=== PATIENT | male | born 1950 | race Caucasian/White ===

== ENCOUNTER 2019-12-11 18:41 | Emergency (ER) | payer MEDICARE ==
[~2019-12-11] VITALS: Ht 188 cm; Wt 104.5 kg
[2019-12-11 19:33] LABS: BASOPHILS # (AUTO) 0.1 X10'3 (0-0.2); EOSINOPHILS # (AUTO) 0.1 X10'3 (0-0.9); LYMPHOCYTES # (AUTO) 2.6 X10'3 (1.1-4.8); MONOCYTES # (AUTO) 0.8 X10'3 (0-0.9)
[2019-12-11] MEDS ORDERED: VENL150C58 PO (19:37)
[2019-12-11] MEDS ORDERED: OMEG-133 PO (19:37)
[2019-12-11] MEDS ORDERED: ASCO-139 PO (19:37)
[2019-12-11] MEDS ORDERED: MULT-955 PO (19:37)
[2019-12-11] MEDS ORDERED: ATOR20TA66 PO (19:37)
[2019-12-11] MEDS ORDERED: OMEP40CA13 PO (19:37)
[2019-12-11] MEDS ORDERED: VITA-268 PO (19:37)
[2019-12-11 19:40] LABS: ALANINE AMINOTRANSFERASE 80 U/L (12-78); ALBUMIN 4.2 G/DL (3.4-5.0); ALBUMIN/GLOBULIN RATIO 0.9 (1.1-1.5); ALKALINE PHOSPHATASE 91 IU/L (46-116); ANION GAP 14 (8-16); ASPARTATE AMINO TRANSFERASE 40 U/L (10-37); BILIRUBIN,TOTAL 0.6 MG/DL (0.1-1.0); BLOOD UREA NITROGEN 34 MG/DL (7-18); BUN/CREATININE RATIO 19.4 (5.4-32.0); CALCIUM 9.1 MG/DL (8.5-10.1); CHLORIDE 100 MMOL/L (99-107); CREATININE 1.75 MG/DL (0.60-1.10); GLUCOSE 169 MG/DL (70-104); LIPASE 94 U/L (73-393); POTASSIUM 3.5 MMOL/L (3.5-5.1); SODIUM 132 MMOL/L (135-145); TOTAL CARBON DIOXIDE 18.4 MMOL/L (24-32); TOTAL PROTEIN 8.9 G/DL (6.4-8.2); eGFR 39 ML/MIN
[2019-12-11 19:42] LABS: BASOPHILS % (AUTO) 0.4 % (0-1); EOSINOPHILS % (AUTO) 0.6 % (0-6); HEMATOCRIT 54.6 % (42.0-52.0); LYMPHOCYTES % (AUTO) 16.9 % (21-51); MEAN CORPUSCULAR HEMOGLOBIN 32.1 PG (27.0-31.0); MEAN CORPUSCULAR HGB CONC 34.7 g/dL (33.0-36.5); MEAN CORPUSCULAR VOLUME 92.4 FL (78-98); MEAN PLATELET VOLUME 7.9 FL (7.4-10.4); MONOCYTES % (AUTO) 5.3 % (2-12); NEUTROPHILS # (AUTO) 12.1 X10'3 (1.8-7.7); NEUTROPHILS % (AUTO) 76.8 % (42-75); PLATELET COUNT 272 X10'3 (140-440); RED BLOOD COUNT 5.91 X10'6 (4.70-6.10); RED CELL DISTRIBUTION WIDTH 12.9 % (11.5-14.5); WHITE BLOOD COUNT 15.7 X10'3 (4.5-11.0)
[2019-12-11 19:58] LABS: CLARITY,URINE SLIGHTLY CLOUDY (Clear); COLOR,URINE YELLOW (Yellow); GLUCOSE, URINE NEGATIVE (Neg); KETONES,URINE NEGATIVE (Neg); LEUKOCYTE ESTERASE ,URINE NEGATIVE (Neg); NITRITES, URINE NEGATIVE (Neg); OCCULT BLOOD,URINE NEGATIVE (Neg); PROTEIN,URINE 30 mg/dl (Neg); UROBILINOGEN,URINE 0.2 E.U/dL (0.2-1.0)
[2019-12-11 20:09] LABS: UA COLLECTION TYPE CLN CATCH MIDSTREAM
[2019-12-11 20:18] LABS: BACTERIA,URINE NONE SEEN /HPF (Neg); HYALINE CASTS >30 /LPF (NEGATIVE); MUCUS STRANDS MANY /LPF (Neg); RBC,URINE 0-2 /HPF (0-2); SQUAMOUS EPITHELIAL CELL,UR FEW /LPF (FEW); WBC,URINE 0-4 /HPF (0-4)
[2019-12-11] MEDS ORDERED: normal saline 1000ML IV soln IVB ONE (21:10)
[2019-12-11] MEDS ORDERED: loperamide 2mg capsule PO ONE (21:10)
[2019-12-11] MEDS ORDERED: ondansetron 4mg rapidly disintigrating tab PO ONE (21:45)
[2019-12-11] MEDS ORDERED: LOPE2TAB25 PO (22:10)
[2019-12-11] MEDS ORDERED: DICY10CA88 PO (22:10)
[2019-12-11] MEDS ORDERED: ONDA-103 PO (22:10)
--- NOTE | 2019-12-11 22:37 | NUR ---
PATIENT WAS ABLE TO PASS PO CHALLENGE ATE 2 PACKS OF SALTINE CRACKERS AND 480mL OF WATER WITH OUT N,V PA AWARE PRIOR TO DISCHARGE
[2019-12-11 22:38] VITALS: BP 149/86
== END 2019-12-11 23:00 | disposition home or self-care (01) ==
LOC: ER 18:42
DX: R11.2 Nausea with vomiting, unspecified (principal); R19.7 Diarrhea, unspecified; E78.00 Pure hypercholesterolemia, unspecified; K21.9 Gastro-esophageal reflux disease without esophagitis; Z87.891 Personal history of nicotine dependence; Z88.0 Allergy status to penicillin; Z88.1 Allergy status to other antibiotic agents; Z79.899 Other long term (current) drug therapy
CPT/HCPCS: 36415; 80053; 81001; 83690; 85025; 96360; 99285; J7030; 99284